=== PATIENT | female | born 1970 | race Caucasian/White ===

== ENCOUNTER → 2016-10-09 | Outpatient (CLI) | payer BC | LOC: C.RDSM 13:59 | PROVIDERS: ATTEND Physical Medicine & Rehabilitation Sports Medicine | DX: M25.531 Pain in right wrist (principal) ==

== ENCOUNTER → 2017-02-19 | Outpatient (CLI) | payer BC | END | disposition home or self-care (01) | LOC: C.RDSM 12:39 | PROVIDERS: ATTEND Physical Medicine & Rehabilitation Sports Medicine | DX: M25.551 Pain in right hip (principal) ==

== ENCOUNTER → 2017-07-08 | Day surgery (SDC) | payer BC ==
[2017-06-08 10:32] VITALS: Ht 157.5 cm; Wt 75.0 kg
[~2017-07-08] VITALS: Ht 157.5 cm; Wt 75.0 kg
[~2017-07-08] MED LIST: ATROPINE SULFATE 0.1 MG/ML 5ML SYR IV PRN; BUPIVACAINE/EPINEPHRINE 0.5% MPF 1:200,000 30 ML VIAL ONE; CEFAZOLIN 1000MG IV PUSH 7.5 ML IV SCH; EpHEDrine SULFATE INJ 50 MG/ML AMP IV PRN; FENTANYL CITRATE INJ 50 MCG/1 ML 2 ML VIAL IV PRN; FENTANYL CITRATE INJ 50 MCG/1 ML 2 ML VIAL ONE; HYDR-5688 PO; HYDROmorphone INJ 1 MG/ML SYR IV PRN; LACTATED RINGER'S 1000ML 1,000 ML IV SCH; LIDOCAINE HCL 2% 2 ML VIAL (20MG/ML) ONE; LIDOCAINE/EPINEPHRINE 1% 20 ML VIAL ONE; MIDAZOLAM HCL 1 MG/ML 2ML VIAL ONE; MULT-506 PO; ONDANSETRON INJ 2 MG/ML 2 ML VIAL IV PRN; OXYCODONE/ACETAMINOPHEN 5-325 TAB PO PRN; PRLSR20 PO; PROMETHAZINE HCL INJ 12.5 MG in SODIUM CHLORIDE 0.9% 50ML 50 ML IV PRN; PROPOFOL IV EMULSION 10 MG/ML 20 ML VIAL IV ONE; SODIUM CHLORIDE 0.9% 1000ML 1,000 ML IV SCH
--- NOTE | 2017-07-08 06:46 | History & Physical Bridge Note ---
H&P Re-Evaluation Bridge Note: I have examined the patient, reviewed the History & Physical and in the interval since the performance of the History & Physical I have noted the following changes of clinical significance: No changes noted
--- NOTE | 2017-07-08 07:50 | [facility] Post Operative Brief Note ---
Immediate Operative Summary Operative Date Jul 08, 2017. Pre-Operative Diagnosis Right Carpal Tunnel Syndrome Post-Operative Diagnosis same as preop Procedure(s) Performed Right Carpal Tunnel Release Surgeon Dr. Lepe T Rail Turner Surgeon(s) ROB Hicks, bryon ser, ms3 Estimated Blood Loss 0ML Findings Consistent with Post-Op Diagnosis Specimens none Drains None Anesthesia Type MAC Complication(s) none Disposition Accompanied Pt To Recovery: no Disposition: Recovery Room / PACU
[2017-07-08 08:00] VITALS: TEMP 36.7
--- NOTE | 2017-07-08 08:02 | Discharge Instructions-SurgCtr ---
Discharge Instructions Date of Service Jul 08, 2017. Visit Reason for Visit: Right Carpal Tunnel Syndrome Discharge Discharge Diagnosis / Problem: right carpal tunnel syndrome Discharge Goals Goal(s): Decrease discomfort, Improve function, Increase independence Activity Recommendations Activity Limitations: per Instructions/Follow-up section Weightbearing Status: Right non-weightbearing (right hand) Anesthesia . Post Anesthesia Instructions: If you have had General Anesthesia or IV Sedation: * Do not drive today. * Resume driving when surgeon permits. * Do not make important decisions or sign legal documents today. * Call surgeon for: 1. Temperature elevations greater than 101 degrees F. 2. Uncontrollable pain. 3. Excessive bleeding. 4. Persistent nausea and vomiting. 5. Medication intolerance (nausea, vomiting or rash). * For nausea and vomiting use only clear liquids such as: tea, soda, bouillon until nausea subsides, then gradually increase diet as tolerated. * If you have any concerns or questions, call your surgeon's office. If physician is unavailable and it is an emergency, call 911 or go to the nearest emergency room. . Instructions / Follow-Up Instructions / Follow-Up The following are instructions to follow after minor hand surgery. ACTIVITY RECOMMENDATIONS: * Minimize activity until your first visit after surgery. * No excessive walking, jogging, sports or laboring. * Return to activity is individualized. Most patients are able to return to everyday activities within 2 weeks. * Return to sports or intensive labor usually occurs at 1-2 months. * DRIVING: Driving may be resumed when you feel you have adequate pain control and use of the hand. * BATHING: You may shower or sponge-bathe immediately after surgery. The dressing will need to be covered with a plastic bag or plastic wrap until the dressing is changed on the fourth or fifth day after surgery. Once the dressing has been changed on the fourth or fifth day after surgery, you may shower and get the incision wet. * Wash with regular soap and water. * Do not bathe (submerge the incision), soak, swim or use a hot tub until the incision is completely healed over with normal skin and the doctor has given the OK to proceed. * There is no need to apply any ointments, powders or salves to your incision. * Do not apply alcohol or hydrogen peroxide directly to the incision. Diluted peroxide (50:50 mixture with sterile saline) may be used to clean dried blood from around the incision area. WORK/SCHOOL: * You may return to sedentary work or school when you are feeling comfortable. This is usually 3-7 days after surgery. * Expect increased discomfort with increased activity. Continue to elevate and ice the hand as much as possible. DIET: * Resume previous diet. MEDICATIONS: * You will have a prescription for pain medication and an anti-inflammatory medication after surgery. Use the pain pills for severe pain and the anti-inflammatory for less severe pain. * Once the pain pills have run out, try to use the anti-inflammatory. If this is not effective then contact the office for assistance. * The pain medication may cause nausea, constipation and sleepiness. You should see how they affect you before driving or similar activity. * The anti-inflammatory may cause stomach upset and bleeding. If this occurs, let your doctor know immediately . * Some patients may need blood clot prevention. This can be done with either a pill or a simple shot. Your doctor will advise you on when to begin these medications and how to take them. * Do not take aspirin or other anti-inflammatory products (i.e. Advil or Aleve ) if taking blood thinner medication. * Take a stool softener like Colace or a stimulant like Senokot to prevent constipation. SPECIAL CARE INSTRUCTIONS: ICE: * Do not apply ice directly to the skin. * Use a thin dressing or stockinet between the skin and ice bag. The dressing in place after surgery will suffice. * Apply ice for 20-30 minutes and repeat every 2-4 hours. This is especially important for the first 3-7 days after surgery. * Once the pain improves, use ice as needed. ELEVATION: * Keep your hand elevated at or above the level of your heart as much as possible. * Expect some increased discomfort and swelling if you allow your hand to hang down for any length of time. DRESSING: * Your dressing will be changed 4-5 days after surgery by the physical therapist or physician's hr administrative assistant. Leave your dressing intact until this time. * You may then change your dressing daily with clean dry gauze or Band-aids and a soft wrap or stockinet. * Always wash your hands prior to touching the incision area. * Once the stitches are removed, you may leave the wound open to air or cover with a thin bandage. * There is no need to apply any ointments, powders or salves to your incision. * Expect some bloody drainage for the first few days after surgery. * Leave the tape strips in place (if present) for 5-7 days. * The initial dressing after surgery may become soaked with blood or fluid which is normal. You may reinforce your dressing with clean, dry gauze as needed. BRACE: * Bracing is generally not needed after routine hand surgery. THERAPY: * Physical therapy may be prescribed after your surgery. * For carpal tunnel and trigger digit surgery you may begin moving your fingers and wrist immediately after surgery as tolerated. * Be careful to not overuse. * Once the sutures are removed, further range of motion exercises can be performed. * Hand incisions may be very sensitive for a few months after surgery so avoid excessive pressure on the incision. If necessary, use a padded weightlifters' glove. * You may massage the incision with skin cream to make it less sensitive and reduce scarring. * Hand strength usually returns with normal use. * If needed, squeezing a soft sponge or Play-dough may help. * Your doctor will recommend physical therapy if necessary. PROBLEMS/QUESTIONS: * If you have any problems such as severe pain, numbness, tingling or high fevers or if you have any questions, please contact the office at [phone]. * It is not uncommon to have some numbness and tingling after the surgery especially if you have had a nerve block done. This should gradually improve over the first 1- 2 days. If this persists longer or worsens then contact the office. FOLLOW UP VISIT: * If not already scheduled, please call the office at to schedule follow-up appointments for approximately 10 days, 6 weeks and 3 months after surgery. * You have a physical therapy appointment on 07/12/2017 at 10:30 AM * You have a follow-up appointment scheduled with Dr. Lepe in 07/21/17 at 4 :00 PM Diet Recommendations Home Diet: no limitations, resume previous diet Procedures Procedures Performed: Right Carpal Tunnel Release Pending Studies Studies pending at discharge: no Medical Emergencies . Who to Call and When: Medical Emergencies: If at any time you feel your situation is an emergency, please call 911 immediately. . Non-Emergent Contact Non-Emergency issues call your: Surgeon Call Non-Emergent contact if: temperature is above 101, your pain is not controlled, your pain is worsening, your pain is unusual for you, wound has increased drainage, wound has increased redness, wound has increased pain, you have any medication questions . . "Provider Documentation" section prepared by Dasha Dozier. . [place] Drug Monitoring Program Search Results: patient reviewed within database, no issues identified
--- NOTE | 2017-07-08 08:04 | [facility] Operative Report ---
Operative Report Operative Date Jul 08, 2017. Pre-Operative Diagnosis Right Carpal Tunnel Syndrome Post-Operative Diagnosis same as preop Procedure(s) Performed Right Carpal Tunnel Release Surgeon Dr. Lepe Twenty One Dealer Surgeon(s) Li Solo [employer] Med Student Estimated Blood Loss 0ML Findings None Specimens none Anesthesia local with IV sedation Complication(s) None Disposition Recovery Room / PACU Indications Patient's a 47-year-old female with right carpal tunnel syndrome refractory to nonsurgical methods of management. Description of Procedure Informed consent obtained. Patient identified as Rose Edward. She identified the operative site as the right hand. I marked with my initials. A preoperative surgical timeout was performed. Preoperative dose of IV antibiotics was given. She was positioned supine on the hospital stretcher with right arm on a hand table. A tourniquet was applied to the right forearm as she had prior surgery on her right arm. Care was taken to note and avoid of her multiple allergies. DuraPrep was used for prepping. Adhesive was a part of the draping but did not appear to irritate her skin. DVT prophylaxis not indicated. Carpal tunnel and field block were given with a 50-50 mixture of 1% lidocaine and half percent Marcaine containing epinephrine. The exam under anesthesia was unremarkable shift for range of motion. A routine prep and drape was performed. A midline incision was made in line with the third webspace. This began a Chen's cardinal line and proceeded just short of the distal wrist crease. Blunt dissection was performed down to subcutaneous tissues and superficial palmar fascia. The palmaris brevis muscle was identified and bluntly divided. The transverse carpal ligament was identified and divided in line with the incision up into the distal forearm fascia. This was done under direct visualization. The contents of the carpal canal appeared to be normal as did the nerve. The wound was irrigated with sterile saline and then closed with 4-0 nylon interrupted horizontal mattress stitches area this was followed by a soft sterile dressing. She was awakened from anesthesia without difficulty and taken to the recovery room in stable condition. There were no specimens or call locations. Counts are correct in the case. Blood loss was minimal. At the conclusion operations both patient's informed of my findings detailed postoperative instructions were given. She'll be rehabilitated according to the carpal tunnel pathway. I attest to the content of the Intraoperative Record and any orders documented therein. Any exceptions are noted below.
--- NOTE | 2017-07-08 08:05 | [facility] Operative Report ---
Operative Report Operative Date Jul 08, 2017. Pre-Operative Diagnosis Right Carpal Tunnel Syndrome Post-Operative Diagnosis same as preop Procedure(s) Performed Right Carpal Tunnel Release Surgeon Dr. Lepe Corporate Analyst Surgeon(s) Li Solo [employer] Med Student, Dasha Dozier PA-C Estimated Blood Loss 0ML Specimens none Drains None Anesthesia Type MAC Complication(s) none Disposition yes Recovery Room / PACU Indications Patient is a 47-year-old female presented to our office with complaints of paresthesias right hand times many months. Should failed conservative treatment and surgical intervention was recommended. She agreed to proceed with surgery. X-rays were negative for any bony abnormality. EMG nerve conduction study showed carpal tunnel syndrome. Risks and complications of surgery were explained to the patient and informed consent was obtained. Description of Procedure Patient was taken to the operating room and placed under IV sedation and given a local injection into her right hand. She was given 1 g of IV Ancef for surgical prophylaxis. Timeout was performed. She was prepped and draped in routine sterile fashion. I was present during the entire case, please see Dr. Lepe's operative report for further detail. She was awakened and transferred to the recovery room in stable condition. I attest to the content of the Intraoperative Record and any orders documented therein. Any exceptions are noted below.
--- NOTE | 2017-07-08 08:05 | Medical Student: [facility] ---
Immediate Operative Summary Operative Date Jul 08, 2017. Pre-Operative Diagnosis Right carpal tunnel syndrome Post-Operative Diagnosis Right carpal tunnel syndrome Procedure(s) Performed Right carpal tunnel release Surgeon Dr. Lepe Screen Print Operator Surgeon(s) Dasha Dozier PA-C and Li Solo, Medical Student Estimated Blood Loss 0cc Findings Normal appearing median nerve and contents of carpal tunnel Specimens No specimens were obtained. Drains None Anesthesia IV sedation, local sedation Complication(s) None Disposition Recovery Room / PACU
[2017-07-08 08:25] VITALS: BP 137/93; PULSE 65; O2SAT 99
--- NOTE | 2017-07-08 08:25 | Anesthesia Progress Nt - [facility] ---
Anesthesia Post Op Note Date & Time Jul 08, 2017 at 08:25 Vital Signs Pain Intensity: 0 Vital Signs Past 12 Hours Date Time Temp Pulse Resp B/P (MAP) Pulse Ox O2 Delivery O2 Flow Rate FiO2 07/08/17 08:00 36.7 80 16 130/87 (101) 100 Room Air 07/08/17 06:26 37.0 84 16 144/93 (110) 96 Room Air Notes Mental Status: alert / awake / arousable, participated in evaluation Pt Amnestic to Procedure: Yes Nausea / Vomiting: adequately controlled Pain: adequately controlled Airway Patency, RR, SpO2: stable & adequate BP & HR: stable & adequate Hydration State: stable & adequate Anesthetic Complications: no major complications apparent Doing well, no complaints, VSS. Ready for d/c
== END | disposition home or self-care (01) ==
LOC: X.SURG 06:15
PROVIDERS: ATTEND Physical Medicine & Rehabilitation Sports Medicine
DX: G56.01 Carpal tunnel syndrome, right upper limb (principal); K21.9 Gastro-esophageal reflux disease without esophagitis; Z88.1 Allergy status to other antibiotic agents; Z91.040 Latex allergy status; Z90.49 Acquired absence of other specified parts of digestive tract; Z96.643 Presence of artificial hip joint, bilateral; Z96.653 Presence of artificial knee joint, bilateral